=== PATIENT | female | born 1980 | race Caucasian/White ===

== ENCOUNTER 2018-02-02 01:25 | Emergency (ER) | payer OTHER ==
[2018-02-02 01:43] VITALS: BP 152/94
--- NOTE | 2018-02-02 01:51 | EDPHY ---
H & P Time Seen by Provider: 02/02/18 01:35 HPI/ROS: Chief complaint: Laceration left middle finger, dorsum. HPI: 30-year-old female sustained a laceration to the left middle finger on the dorsum of the middle phalanx just prior to admission. She was at home doing a little bit of remodeling product where she is laying down some lab minute donna. As she was using a utility knife putting quite a bit of pressure on it she sustained a laceration across the dorsum of the finger. She denies any numbness or tingling paresthesias. Right Handed Reports there is no numbness or loss of sensation. 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 Well-nourished. No odor of alcohol. Nontoxic. Afebrile. Extremity: There is a 3 cm, linear laceration that is full thickness to the dorsum of the middle phalanx on the left hand. She is able to keep the finger extended against resistance without any laxity. . Function: Without signs of tendon dysfunction, though a portion of the central slip was injured as seen on the exploration of the wound. NV Status: Intact CMS: Intact Constitutional: Initial Vital Signs Temperature (C) 36.4 C 02/02/18 01:40 Heart Rate 68 02/02/18 01:40 Respiratory Rate 16 02/02/18 01:40 Blood Pressure 152/94 H 02/02/18 01:40 O2 Sat (%) 99 02/02/18 01:40 O2 Delivery Mode Room Air Allergies/Adverse Reactions: amoxicillin [Amoxicillin] Allergy (Intermediate, Verified 03/24/14 11:03) erythromycin base [Erythromycin Base] Allergy (Intermediate, Verified 03/24/14 11:03) tetracycline [Tetracycline] Allergy (Intermediate, Verified 03/24/14 11:03) Home Medications: Medication Instructions Recorded Amitriptyline HCl 02/02/18 Baclofen 02/02/18 Bactrim DS 02/02/18 Gabapentin 02/02/18 OXcarbazepine [Trileptal 300mg (*)] 02/02/18 amLODIPine BESYLATE [Norvasc 10 mg 10/27/18 (*)] Medical Decision Making Procedures: Procedure: Laceration repair. Options presented to patient, consented to repair. After skin prep with chloraseptic the wound was anesthesized with digital block with lidocaine 1 % without epinephrine The wound was Cleansed with irrigation by Tech The length of the wound was 3 cm. While the majority was over the top of the digit a0.5 cm portion did tail around to the ulnar aspect. Distal sensation was intact. Inspection and exploration of the wound, with gloved finger and forceps ,prior to closure revealed no evidence of foreign body. However, a 2cm portion of the central slip extensor tendon apparatus was injured. Closure was obtained using running 5 0 nylon. At the end of the procedure, wound edges were well approximated and hemostasis was achieved. Patient tolerated procedure well. ED Course/Re-evaluation: Splint application of the 3rd digit by tech, under my supervision. After application, area examined as well as splint examined , by me. Good alignment. Neurovascular status intact. Differential Diagnosis: Diagnostic considerations include, but are not limited to, the following: Laceration, retained FB ,tendon injury. Departure - Departure Disposition: Home, Routine, Self-Care Clinical Impression: Tendon laceration Laceration of finger Qualifiers: Encounter type: initial encounter Finger: middle finger Damage to nail status: without damage Foreign body presence: without foreign body Laterality: left Qualified Code(s): S61.213A - Laceration without foreign body of left middle finger without damage to nail, initial encounter Condition: Good Instructions: Finger Laceration (ED) Additional Instructions: Keep the area clean and dry He will need a splint to allow the skin to heal. Wear this at all times, but change the dressing daily. Do not change the dressing the 1st time around until the morning of February 03. Follow up next week with the Hand Surgeon as part of the tendon was injured. Referrals: Oscar Parker MD [Medical Doctor] - 2-3 days, call for appt.
== END 2018-02-02 02:20 | disposition home or self-care (01) ==
LOC: CED 01:25
PROC: 0HQGXZZ Repair Left Hand Skin, External Approach (ICD-10-PCS; principal; 2018-02-02)
DX: S56.424A Laceration of extensor muscle, fascia and tendon of left middle finger at forearm level, initial encounter (principal); W26.0XXA Contact with knife, initial encounter; Y93.E9 Activity, other interior property and clothing maintenance; Y92.019 Unspecified place in single-family (private) house as the place of occurrence of the external cause